=== PATIENT | male | born 1960 | race Caucasian/White ===

== ENCOUNTER 2016-12-11 14:42 | Emergency (ER) ==
[2016-12-11 14:52] VITALS: BP 137/93; TEMP 99.8; BMI 31.1
[2016-12-11 15:33] LABS: BASOPHILS # (AUTO) 0.1 K/uL (0-0.2); BASOPHILS % (AUTO) 0.6 % (0.0-3.0); EOSINOPHILS # (AUTO) 0.5 K/ul (0.0-0.7); EOSINOPHILS % (AUTO) 5.9 % (0.0-7.0); HEMATOCRIT 41.7 % (42.0-52.0); HEMOGLOBIN 14.5 g/dl (14.0-18.0); IMMATURE GRANULOCYTE % (AUTO) 0.2 % (0.0-5.0); LYMPHOCYTES # (AUTO) 1.8 K/uL (0.60-3.4); LYMPHOCYTES % (AUTO) 21.6 (10.0-50.0); MEAN CORPUSCULAR HEMOGLOBIN 29.8 pg (27.0-31.0); MEAN CORPUSCULAR HGB CONC 34.8 (31.8-35.4); MEAN CORPUSCULAR VOLUME 85.6 fl (80.0-94.0); MONOCYTES # (AUTO) 0.6 K/uL (0.4-2.0); MONOCYTES % (AUTO) 7.5 (0-10); NEUTROPHILS # (AUTO) 5.2 K/ul (2.0-6.9); NEUTROPHILS % (AUTO) 64.2; PLATELET COUNT 286 10^3/uL (140-440); RED BLOOD COUNT 4.87 10^6/ul (4.70-6.10); WHITE BLOOD COUNT 8.14 K/ul (4.2-10.2)
[2016-12-11 16:07] LABS: ALANINE AMINOTRANSFERASE 32 U/L (12-78); ALBUMIN 3.6 g/dL (3.4-5.0); ALKALINE PHOSPHATASE 91 U/L (50-136); ANION GAP 12.1; ASPARTATE AMINO TRANSFERASE 30 U/L (15-37); BILIRUBIN,TOTAL 0.57 mg/dL (0.00-1.20); BLOOD UREA NITROGEN 31 mg/dL (7-18); BUN/CREATININE RATIO 23.84; CALCIUM 9.1 mg/dL (8.2-10.2); CARBON DIOXIDE 26 mmol/L (21-32); CHLORIDE 105 mmol/L (98-107); CREATINE KINASE 238 U/L; GLUCOSE 138 mg/dL (70-100); POTASSIUM 4.1 mmol/L (3.5-5.1); SODIUM 139 mmol/L (136-145); TOTAL PROTEIN 7.2 g/dL (6.4-8.2)
--- NOTE | 2016-12-11 16:07 | DI ---
EXAM: Chest two views HISTORY: Chest pain FINDINGS: Normal cardiac and mediastinal contours. Normal pulmonary vasculature. Lungs are clear. No significant abnormality of the bony thorax. IMPRESSION: Chest radiograph within normal limits.
[2016-12-11 16:09] LABS: CREATINE KINASE MB 3.3 ng/ml (0.0-3.6)
--- NOTE | 2016-12-11 16:15 | CT ---
EXAM: CT of the abdomen pelvis without contrast History: Right upper quadrant abdominal pain. Comparison: Abdominal ultrasound 01/18/2011, CT abdomen 05/02/2008 Technique: Multiplanar CT images through the abdomen were obtained without the administration of IV contrast Findings: Subsegmental atelectasis seen at the lung bases. No acute osseous abnormalities. Gallbladder is contracted. No renal stones and no hydronephrosis. The appendix is normal. Small h iatal hernia. No peripancreatic inflammation. Adrenal glands are unremarkable. No focal liver les ions identified within limitations of this noncontrast study. No splenic lesions. No bowel obstruct ion. No free air. No bladder wall thickening. Prostate is not enlarged. No perirectal inflammati on. Scattered colonic stool. Impression: No acute intra-abdominal or pelvic process. Small hiatal hernia.
--- NOTE | 2016-12-11 17:28 | ED.PDOC ---
General ED Provider: Dr. ALONSO TAPIA Chief Complaint: Abdominal Pain Stated Complaint: RUQ ABDOMINAL PAIN Time Seen by Physician: 14:46 (HISTORY OF HEP C ) Mode of Arrival: Walk-In Information Source: Patient Exam Limitations: No limitations Nursing and Triage Documentation Reviewed and Agree: Yes GI Complaint Exam - Abdominal Pain Complaint/Exam Onset: Gradual Duration: 1 MONTH Symptoms Are: Resolved Timing: Intermittent Initial Severity: Moderate Current Severity: Moderate Location of Pain: RUQ Character: Reports: Aching Aggravating: Reports: Movement, Food Alleviating: Reports: Rest, Spontaneous resolution Associated Signs and Symptoms: Reports: Cough. Denies: Diaphoresis, Fever, Chest pain, Dizziness, Back pain, Constipation, Blood in stool, Dysuria, Urinary frequency, Decreased urine output, Decreased appetite, Discharge, Nausea , Vomiting, Diarrhea, Decreased activity Related History: Reports: Similar episode AAA Risk Factors: Reports: None Cardiac Risk Factors: Reports: None Testicular Torsion Risk Factors: Reports: None Surgical Obstruction Risk Factors: Reports: None Related Surgical History: Reports: None Abdominal Findings: Present: None Differential Diagnoses: ACS, Appendicitis, Bowel Obstruction, Constipation, Diverticulitis, Hepatitis, Pancreatitis, Renal Colic, Ureteral Stone Quality Indicators for AMI: EKG in 10min. Quality Indicators for Cardiac Chest Pain: EKG in 10min. Review of Systems - Review Of Systems Constitutional: Reports: No symptoms Eyes: Reports: No symptoms Ears, Nose, Mouth, Throat: Reports: No symptoms Respiratory: Reports: No symptoms Cardiac: Reports: No symptoms GI: Reports: Abdominal pain : Reports: No symptoms Musculoskeletal: Reports: No symptoms Skin: Reports: No symptoms Neurological: Reports: No symptoms Endocrine: Reports: No symptoms Hematologic/Lymphatic: Reports: No symptoms All Other Systems: Reviewed and Negative Past Medical History - Past Medical History Previously Healthy: Yes Endocrine: Reports: None Cardiovascular: Reports: None Respiratory: Reports: None Hematological: Reports: None Gastrointestinal: Reports: Other (HEP C) Genitourinary: Reports: None Neuro/Psych: Reports: None Musculoskeletal: Reports: Back Pain Cancer: Reports: None - Surgical History General Surgical History: Reports: None - Family History Family History: Reports: None - Social History Smoking Status: Former smoker Hx Substance Use: No Alcohol Screening: Occasionally Physical Exam - Physical Exam Appearance: Well-appearing, No pain distress, Well-nourished Eyes: NIMA, EOMI, Conjunctiva clear ENT: Ears normal, Nose normal, Oropharynx normal Respiratory: Airway patent, Breath sounds clear, Breath sounds equal, Respirations nonlabored Cardiovascular: RRR, Pulses normal, No rub, No murmur GI/: Soft, Nontender, No masses, Bowel sounds normal, No Organomegaly Musculoskeletal: Normal strength, ROM intact, No edema, No calf tenderness Skin: Warm, Dry, Normal color Neurological: Sensation intact, Motor intact, Reflexes intact, Cranial nerves intact, Alert, Oriented Psychiatric: Affect appropriate, Mood appropriate Interpretation - Radiology Interpretation Radiology Interpretation By: Radiologist Radiology Results: No acute changes Re-Evaluation - Re-Evaluation Time of Re-Evaluation: 16:00 Status: Improved Vital Signs Stable: Yes Pain Level: 0 Appearance: NAD Lungs: Clear Skin: Warm and Dry Neuro: Alert and Oriented X3 CV: RRR - Re-Evaluation Time of Re-Evaluation: 17:29 Status: Improved Vital Signs Stable: Yes Pain Level: 0 Appearance: NAD Skin: Warm and Dry Neuro: Alert and Oriented X3 CV: RRR Critical Care Note - Critical Care Note Total Time (mins): 0 Course - Course Hematology/Chemistry: 12/11/16 15:25 12/11/16 15:25 Orders, Labs, Meds: Lab Review 12/11/16 15:25 WBC 8.14 RBC 4.87 Hgb 14.5 Hct 41.7 L MCV 85.6 MCH 29.8 MCHC 34.8 RDW Coeff of Piero 13.2 Plt Count 286 Immature Gran % (Auto) 0.2 Neut % (Auto) 64.2 Lymph % (Auto) 21.6 Taney % (Auto) 7.5 Eos % (Auto) 5.9 Baso % (Auto) 0.6 Immature Gran # (Auto) 0.0 Neut # 5.2 Lymph # 1.8 Taney # 0.6 Eos # 0.5 Baso # 0.1 D-Dimer (Manual) 279.68 Sodium 139 Potassium 4.1 Chloride 105 Carbon Dioxide 26 Anion Gap 12.1 BUN 31 H Creatinine 1.30 H Estimated GFR (MDRD) 57.00 BUN/Creatinine Ratio 23.84 Glucose 138 H Calcium 9.1 Total Bilirubin 0.57 AST 30 ALT 32 Alkaline Phosphatase 91 Total Creatine Kinase 238 CK-MB (CK-2) 3.3 CK-MB (CK-2) % 1.97240 Troponin I < 0.0100 Total Protein 7.2 Albumin 3.6 Globulin 3.6 Albumin/Globulin Ratio 1.00 Orders Category Date Time Status CBC W/ AUTO DIFF Stat LAB 12/11/16 15:25 Completed COMPREHENSIVE METABOLIC PANEL Stat LAB 12/11/16 15:25 Completed CREATINE KINASE Stat LAB 12/11/16 15:25 Completed D-DIMER Stat LAB 12/11/16 15:25 Completed TROPONIN I Stat LAB 12/11/16 15:25 Completed CHEST, 2 VIEWS PA & LAT Stat RADS 12/11/16 15:[address] ABDOMEN/PELVIS WO CONTRAST Stat RADS 12/11/16 15:20 Completed Vital Signs: Temp Pulse Resp BP Pulse Ox 12/11/16 14:46 99.8 F H 87 16 137/93 H 94 L Departure - Departure Time of Disposition: 17:29 Disposition: HOME SELF-CARE Discharge Problem: Abdominal pain Instructions: Acute Abdominal Pain (ED) Condition: Good Pt referred to PMD for follow-up: No Additional Instructions: Please call your Family Physician as soon as possible to schedule a follow-up appointment. Allergies/Adverse Reactions: Allergies No Known Allergies Allergy (Unverified 12/11/16 14:44) Home Medications: Ambulatory Orders Amitriptyline HCl [Elavil] 50 mg PO BEDTIME 04/09/13 Hydrocodone Bit/Acetaminophen [Lortab 10-500] 10 mg PO QID PRN 04/09/13 Pregabalin [Lyrica] 200 mg PO TID 04/09/13 Oxycodone HCl [Oxycodone] 5 mg PO Q6H PRN 12/11/16 Disposition Discussed With: Patient, Family
== END 2016-12-11 17:42 | disposition home or self-care (01) ==
LOC: ED 14:42
DX: R10.11 Right upper quadrant pain (principal); R05 Cough; Z79.899 Other long term (current) drug therapy
CPT/HCPCS: 36415; 80053; 82550; 82553; 84484; 85025; 85379; 99283

== ENCOUNTER 2017-04-17 15:43 | Outpatient (CLI) | payer OTHER ==
[2017-04-17 15:59] LABS: BASOPHILS # (AUTO) 0.1 K/uL (0-0.2); EOSINOPHILS # (AUTO) 0.5 K/ul (0.0-0.7); EOSINOPHILS % (AUTO) 6.9 % (0.0-7.0); HEMATOCRIT 43.5 % (42.0-52.0); HEMOGLOBIN 14.9 g/dl (14.0-18.0); IMMATURE GRANULOCYTE % (AUTO) 0.1 % (0.0-5.0); LYMPHOCYTES % (AUTO) 29.4 (10.0-50.0); MEAN CORPUSCULAR HEMOGLOBIN 29.7 pg (27.0-31.0); MEAN CORPUSCULAR HGB CONC 34.3 (31.8-35.4); MEAN CORPUSCULAR VOLUME 86.8 fl (80.0-94.0); MONOCYTES # (AUTO) 0.5 K/uL (0.4-2.0); MONOCYTES % (AUTO) 7.7 (0-10); NEUTROPHILS # (AUTO) 3.7 K/ul (2.0-6.9); NEUTROPHILS % (AUTO) 54.9; PLATELET COUNT 332 10^3/uL (140-440); RED BLOOD COUNT 5.01 10^6/ul (4.70-6.10); WHITE BLOOD COUNT 6.78 K/ul (4.2-10.2)
[2017-04-17 16:13] LABS: ALBUMIN 3.8 g/dL (3.4-5.0); ALBUMIN/GLOBULIN RATIO 1.06; ANION GAP 11.2; BILIRUBIN,TOTAL 0.55 mg/dL (0.00-1.20); BUN/CREATININE RATIO 19.09; CALCIUM 9.4 mg/dL (8.2-10.2); CHOL/HDL RATIO 3.1 (4.5-6.4); CREATININE 1.1 mg/dL (0.60-1.10); POTASSIUM 4.2 mmol/L (3.5-5.1); TOTAL PROTEIN 7.4 g/dL (6.4-8.2)
--- NOTE | 2017-04-17 16:41 | DI ---
EXAM: The left wrist, three views, 04/17/2017 HISTORY: Left wrist pain COMPARISON: None. FINDINGS / IMPRESSION: Chronic osteoarthritic degenerative change. This is most severe at the basil ar joint. There is joint space narrowing with articular sclerosis and subchondral cyst formation. Pro minent osteophyte formation and degenerative appearing bony fragment along the distal aspect of the t rapezium. The osseous structures appear intact. There is no evidence of fracture or or subluxation. No gross soft tissue abnormality.
== END 2017-04-17 15:44 | disposition home or self-care (01) ==
LOC: RAD 15:43
PROVIDERS: ATTEND Emergency Medicine
DX: M25.532 Pain in left wrist (principal); E66.9 Obesity, unspecified; M47.26 Other spondylosis with radiculopathy, lumbar region
CPT/HCPCS: 36415; 80053; 80061; 85025

== ENCOUNTER 2017-04-24 13:11 | Outpatient (CLI) ==
--- NOTE | 2017-04-24 13:51 | DI ---
EXAM: Three views of the bilateral sacroiliac joints. History: Sacral pain. Findings: No acute fracture or dislocation. Bilateral sacroiliac joints are intact with no erosions and no significant sclerosis. Degenerative facet hypertrophy at L5-S1. Impression: 1. Intact bilateral sacroiliac joints. 2. Degenerative facet hypertrophy at L5-S1.
--- NOTE | 2017-04-24 13:51 | DI ---
EXAM: Two views of the right hip. History: Right hip pain. Findings: No acute fracture or dislocation. No abnormal calcifications or radiopaque foreign bodies . Joint spaces are preserved. Impression: Unremarkable exam
== END 2017-04-24 13:12 | disposition home or self-care (01) ==
LOC: RAD 13:11
PROVIDERS: ATTEND Physician Assistant
DX: M53.3 Sacrococcygeal disorders, not elsewhere classified (principal)

== ENCOUNTER 2017-04-26 09:53 | Outpatient (CLI) ==
--- NOTE | 2017-04-26 16:40 | MRI ---
EXAM: MRI lumbar spine without IV contrast. DATE: 26 April 2017. HISTORY: Lumbar back pain. TECHNIQUE: Sagittal and axial T1W and T2W sequences of the lumbar spine along with sagittal IR and c oronal T2W sequences were obtained using 1.2 Eri magnet. No IV contrast. COMPARISON: LS spine series 04/19/2013. MRI T-spine [address] abdomen/pelvis 12/11/2016. FINDINGS: There are five wuw-jps-fywmanr lumbar vertebra. Minimal anterior subluxations at L4 relat shea to L3 and L5 relative to S1 are noted. No other subluxation, acute fracture, osseous malignancy, or pars interarticularis defect is identified. Lumbar vertebra are normal in height. Bone marrow s ignal is normal. Intervertebral discs are normal in height and signal. No sacral fracture or stress reaction is apparent. SI joints are unremarkable. Conus medullaris terminates at T12-L1. Visible spinal cord is normal. No retroperitoneal lymphadenopathy, paraspinal mass, or aortic aneurysm is detected. Paraspinal musc ulature is symmetric bilaterally. Visible portions of the liver, spleen, adrenal glands, and kidneys are normal. Segmental analysis: T12-L1: Normal. L1-2: Normal. L2-3: Normal. L3-4: Minor anterior subluxation of L4, small pseudodisc bulge, mild facet arthropathy, and mild lig amentum flavum hypertrophy cause mild central canal stenosis and mild bilateral foraminal stenoses. Left L3 nerve root contacts the disc bulge near the lateral margin of the foramen. L4-5: Minor anterior subluxation of L5, small concentric disc bulge, mild/moderate facet arthropathy , and moderate ligamentum flavum hypertrophy cause moderate central canal stenosis, moderate/marked r ight foraminal stenosis, and slight left foraminal narrowing. Right L4 nerve root contacts the disc bulge/facet disease near the foramen. L5-S1: Small posterior to foraminal disc bulge, mild right facet arthropathy, and mild ligamentum fl avum hypertrophy cause triangulation canal and mild right foraminal stenosis. Right L5 nerve root co ntacts the disc bulge near the lateral margin of the foramen. IMPRESSIONS: 1. Lumbar spine mild facet arthropathy, and multilevel mild DDD. 2. Multilevel central canal stenoses (L3-4: Mild. L4-5: Moderate. L5-S1: Minor). 3. Multilevel foraminal stenoses. Left L3, right L4, and right L5 nerve roots contact disc bulges n ear the foramen, and may be sources for pain/radiculopathy.
== END 2017-04-26 09:54 | disposition home or self-care (01) ==
LOC: RAD 09:53
PROVIDERS: ATTEND Physician Assistant
DX: M54.5 Low back pain (principal)

== ENCOUNTER 2017-07-04 15:15 | Outpatient (CLI) ==
--- NOTE | 2017-07-04 16:03 | DI ---
Exam: Seven x-rays of the lumbar spine. Comparison: MRI performed on 04/26/2017. Reason for exam: Low or inflammatory spondylolisthesis. FINDINGS: No acute fracture. The vertebral body heights are relatively well maintained. There is a grade 1 retrolisthesis of L3 on L4 measuring approximately 3 mm. No significant motion abnormality is seen with the flexion or extension radiographs. There is multilevel degenerative disease with fac et hypertrophy. Impression: 1. Degenerative disease in the lumbosacral spine without vertebral body height loss. 2. Grade 1 retrolithesis without significant motion abnormality on flexion or extension radiographs.
== END 2017-07-04 15:16 | disposition home or self-care (01) ==
LOC: RAD 15:15
PROVIDERS: ATTEND Neurological Surgery
DX: M46.87 Other specified inflammatory spondylopathies, lumbosacral region (principal); M47.816 Spondylosis without myelopathy or radiculopathy, lumbar region; M51.26 Other intervertebral disc displacement, lumbar region

== ENCOUNTER 2017-10-05 15:27 | Outpatient (CLI) | payer OTHER ==
--- NOTE | 2017-10-05 16:06 | DI ---
EXAM: Radiographs, left knee HISTORY: Left knee pain. COMPARISON: None available. TECHNIQUE: Three views. FINDINGS: Bone mineralization is normal. There is no fracture or dislocation. Moderate medial comp artment joint space narrowing noted with subchondral sclerosis and marginal osteophyte formation. Sm all marginal osteophytes present off the posterior patella. No erosive changes are seen. No focal s oft tissue abnormality is seen. IMPRESSION: Osteoarthritis, moderate in the medial compartment.
== END 2017-10-05 15:28 | disposition home or self-care (01) ==
LOC: RAD 15:27
PROVIDERS: ATTEND Nurse Practitioner Family
DX: M25.562 Pain in left knee (principal)

== ENCOUNTER 2017-10-29 11:36 | Emergency (ER) ==
[2017-10-29 11:41] VITALS: BP 158/89; TEMP 97.8; BMI 33.3
[2017-10-29] MEDS ORDERED: ROCEPHIN IM STA (12:01)
[2017-10-29] MEDS ORDERED: LIDOCAINE HCL 1% SDV IM STA (12:01)
--- NOTE | 2017-10-29 12:01 | ED.PDOC ---
General ED Provider: Dr. JAQUELIN GOMES MD Chief Complaint: Tooth Problem Stated Complaint: toothache Time Seen by Physician: 12:00 Mode of Arrival: Walk-In Information Source: Patient [facility] Nursing and Triage Documentation Reviewed and Agree: Yes Reviewed sepsis parameters & appropriate labs ordered?: Yes System Inflammatory Response Syndrome: Not Applicable Sepsis Protocol: For patient's 13 years and over: Temp is 96.8 and below OR 101 and greater Pulse >90 BPM Resp >20/minute Acutely Altered Mental Status Are patient's symptoms suggestive of a new infection, such as: -Pneumonia -Skin, Soft Tissue -Endocarditis -UTI -Bone, Joint Infection -Implantable Device -Acute Abdominal Infection -Wound Infection -Meningitis -Blood Stream Catheter Infection -Unknown System Inflammatory Response Syndrome: Not Applicable EENT Complaint Exam - Dental/Oral Complaint/Exam Onset/Duration: just had 8 teeth pulled last week Symptoms Are: Still present Timing: Constant Initial Severity: Mild Current Severity: Moderate Character: Reports: Aching Aggravating: Reports: None Alleviating: Reports: None Cardiac Risk Factors: Reports: None Tooth Findings: Present: Normal findings Cervical Lymphadenopathy Present: No Facial Swelling Present: No Bleeding Present: No Septal Hematoma: No Foreign Body Present: No Dysphagia Present: No Drooling Present: No Asymmetrical Tonsillar Swelling Present: No Uvula Midline: Yes Iliana-tonsillar Fluctuence: No Review of Systems - Review Of Systems Constitutional: Reports: No symptoms Eyes: Reports: No symptoms Ears, Nose, Mouth, Throat: Reports: Mouth pain Respiratory: Reports: No symptoms Cardiac: Reports: No symptoms GI: Reports: No symptoms : Reports: No symptoms Musculoskeletal: Reports: No symptoms Skin: Reports: No symptoms Neurological: Reports: No symptoms Endocrine: Reports: No symptoms Hematologic/Lymphatic: Reports: No symptoms All Other Systems: Reviewed and Negative Past Medical History - Past Medical History Previously Healthy: Yes Endocrine: Reports: None Cardiovascular: Reports: None Respiratory: Reports: None Hematological: Reports: None Gastrointestinal: Reports: Other (HEP C) Genitourinary: Reports: None Neuro/Psych: Reports: None Musculoskeletal: Reports: Back Pain Cancer: Reports: None - Surgical History General Surgical History: Reports: None - Family History Family History: Reports: None - Social History Smoking Status: Former smoker Hx Substance Use: No Alcohol Screening: Occasionally Physical Exam - Physical Exam Appearance: Obese Ill-appearing: None Pain Distress: None Eyes: NIMA, EOMI, Conjunctiva clear ENT: Ears normal, Nose normal, Oropharynx normal Respiratory: Airway patent, Breath sounds clear, Breath sounds equal, Respirations nonlabored Cardiovascular: RRR, Pulses normal, No rub, No murmur GI/: Soft, Nontender, No masses, Bowel sounds normal, No Organomegaly Musculoskeletal: Normal strength, ROM intact, No edema, No calf tenderness Skin: Warm, Dry, Normal color Neurological: Sensation intact, Motor intact, Reflexes intact, Cranial nerves intact, Alert, Oriented Psychiatric: Affect appropriate, Mood appropriate Critical Care Note - Critical Care Note Total Time (mins): 0 Course - Course Vital Signs: Temp Pulse Resp BP Pulse Ox 10/29/17 11:37 97.8 F 80 20 158/89 H 97 Departure - Departure Time of Disposition: 12:30 (f/u dentist) Disposition: HOME SELF-CARE Discharge Problem: Tooth ache Condition: Good Pt referred to PMD for follow-up: Yes IPMP verified?: No Allergies/Adverse Reactions: Allergies No Known Allergies Allergy (Verified 10/29/17 11:41) Home Medications: Ambulatory Orders Amitriptyline HCl [Elavil] 50 mg PO BEDTIME 04/09/13 Hydrocodone Bit/Acetaminophen [Lortab 10-500] 10 mg PO QID PRN 04/09/13 Pregabalin [Lyrica] 200 mg PO TID 04/09/13 Oxycodone HCl [Oxycodone] 5 mg PO Q6H PRN 12/11/16
[2017-10-29] MEDS ORDERED: TORADOL IM STA (12:02)
== END 2017-10-29 12:46 | disposition home or self-care (01) ==
LOC: ED 11:36
DX: K08.89 Other specified disorders of teeth and supporting structures (principal)
CPT/HCPCS: 96372; 99283

== ENCOUNTER 2018-09-25 12:17 | Outpatient (CLI) ==
--- NOTE | 2018-09-25 14:49 | DI ---
EXAM: Right knee four-view HISTORY: Right knee pain COMPARISON: None FINDINGS: No fracture or dislocation. Small medial and retropatellar osteophytes. Mild narrowing m edial compartment. Elongation of the inferior aspect of the patella may be due to old trauma or soft tissue injury. Small joint effusion suggested. IMPERSSION: 1. Mild osteoarthritis. 2. Small joint effusion.
--- NOTE | 2018-09-25 14:59 | DI ---
EXAM: Four views of the left knee HISTORY: Left knee pain. COMPARISON: The right knee x-rays same day and left knee x-ray 10/05/2017 FINDINGS: Medial and lateral compartments demonstrate mild to moderate osteophyte formation and minim al medial compartmental narrowing. The patella is normal in position with small osteophyte formation . There is a small knee effusion. Soft tissues are otherwise unremarkable. There has been minimal change from prior exam. IMPRESSION: Minimal change in the tricompartmental degenerative disease of the left knee with a small effusion.
== END 2018-09-25 12:18 | disposition home or self-care (01) ==
LOC: RAD 12:17
PROVIDERS: ATTEND Pain Medicine Interventional Pain Medicine
DX: M25.561 Pain in right knee (principal); M25.562 Pain in left knee

== ENCOUNTER 2018-12-16 09:56 | Outpatient (CLI) ==
--- NOTE | 2018-12-16 15:46 | MRI ---
MRI of the lumbar spine HISTORY: Low back pain. Right SI joint pain. COMPARISON: 04/26/2017. PROCEDURE: Multiplanar, multisequence MRI protocol including sagittal T1-weighted, sagittal T2-weigh jaany, sagittal inversion recovery, coronal T2-weighted, axial T1-weighted and axial T2-weighted sequen antionette. FINDINGS: There are five non-rib bearing lumbar vertebrae. Vertebral alignment demonstrates minimal anterior subluxation of L4 relative to L3 and L5 relative to S1 as described in the previous report.. Vertebral body height is well maintained. Marrow signal is within normal limits for age. The inte rvertebral discs appear normal in height and signal. The conus medullaris appears normal in position and configuration and signal. The caliber of the spinal canal is intrinsically within normal limits . The prevertebral and paraspinous soft tissues are stable in appearance. Segmental analysis: T12-L1: There is no significant disc bulge at this level. The spinal canal is not significantly narr owed. The subarticular spaces and lateral recesses are not significantly narrowed. The neural garcia isha are not stenosed. The conus crosses this level. L1-L2: There is no significant disc bulge at this level. The spinal canal is not significantly narro wed. The subarticular spaces and lateral recesses are not significantly narrowed. The neural forami na are not stenosed. The conus terminates about this level. L2-L3: There is no significant disc bulge at this level. The spinal canal is not significantly narro wed. The subarticular spaces and lateral recesses are not significantly narrowed. The neural forami na are not stenosed. There are small facet effusions. L3-L4: There is a broad-based pseudodisc bulge impressing the ventral thecal sac at this level. The AP diameter in the midline is reduced to about 8.5 mm by disc, facet hypertrophy, thickening ligament a flava and dorsal epidural lipomatosis. The subarticular spaces and lateral recesses are not signif icantly narrowed. There is mild bilateral foraminal stenosis due to facet arthropathy and disc intru angel. L4-L5: There is a modest broad-based pseudodisc bulge at this level. The AP diameter of the thecal s ac in the midline is reduced to about 8.5 mm. There is modest narrowing of the subarticular spaces. There is mild left and moderate to severe right foraminal stenosis due to facet arthropathy and disc intrusion. L5-S1: There is a modest broad based disc bulge at this level. The spinal canal is not significantly narrowed. The subarticular spaces and lateral recesses are not significantly narrowed. There is mi ld to moderate right foraminal stenosis due to facet arthropathy and disc intrusion. IMPRESSION: 1. The lumbar vertebrae and intervertebral discs are stable in appearance when compared to the patie nt's prior examination. 2. There is previously described multilevel central canal stenosis including mild stenosis at L3-4 a nd L4-5. 3. There is multilevel foraminal stenosis including mild bilateral stenosis at L3-4, mild left and m oderate to severe right stenosis at L4-5 and mild to moderate right stenosis at L5-S1, details provid ed in the report at the individual levels. 4. The SI joints are not completely included in the protocol for the current examination. If there is strong clinical reason to suspect SI joint pathology, a separate MRI examination is suggested.
== END 2018-12-16 09:57 | disposition home or self-care (01) ==
LOC: RAD 09:56
PROVIDERS: ATTEND Pain Medicine Interventional Pain Medicine
DX: M46.1 Sacroiliitis, not elsewhere classified (principal); M54.5 Low back pain

== ENCOUNTER 2019-02-28 14:00 | Outpatient (RCR) | payer OTHER ==
--- NOTE | 2019-02-20 16:25 | RS.OPPTEV2 ---
Date of Note: 02/20/19 Visit #: 1 Number of visits approved by Insurance: [id number] approved thru work comp Date of Evaluation: 02/20/19 Payer Source: [employer] Surgery Performed?: Yes (L TKR 12/30/18) Treatment Diagnosis: pain L knee, aftercare following total knee joint, joint stiffness History of Condition/Mechanism of Injury:: pt underwent L TKR on 12/30/18. pt has been waiting since that date to get approval through work comp to begin PT. Prior Level of Function.....Patient was independent with: ADL's, Self Care, Ambulation/Mobility, Community Integration/Access Level of Function: pt is disabled. Functional Limitations: Sleep, Standing, Bending, Squatting, Ambulation, Community Access/Integration Current Subjective/complaints:: pt voices frustration regarding process to get PT started. pt had total knee replacement on 12/30/18 and has not had any therapy until today. pt states he has wear and tear injuries to his knees from years ago working at [employer]. Treatment Side (optional): Left *Precautions: n/a Medical History Medical History Comments:: chronic back pain Surgical History: Knee Replacement (L TKR, ) Surgical History Comments:: wrist sx Smoking Status: Former smoker Hx Home Medications: norco, oxycodone, lyrica, elavil Patient's Goals: decrease L knee pain and improve ROM Pain Assessment - Pain Description Pain Location: L knee Pain Description: Aching Current Pain Intensity: 8 Worst Pain Intensity: 10+ Functional Outcome Measure LE Functional Scale: 30 - G Codes & Severity Modifier G Codes & Modifier: n/a Source of G Code score: n/a Observation - Observation Inspection: L LE hamstring tightness Posture: Forward Head, Rounded Shoulders, Increased Thoracic Kyphosis Handedness: Right Girth Measurement Lower: LLE 42cm. RLE 39.5cm Gait - Gait Pattern General Gait Pattern Observation: Antalgic Gait, Decrease Stride Lngth (L) Gait Comments: pt amb with decreased heel strike/toe off gait pattern. pt also with increased lat sway. pt is amb with straight cane General Range of Motion: BUE WFL's. RLE WFL's. L LE hip and ankle WFL's Muscle Strength: BUE 5/5. RLE 5/5. LLE hip flex 4/5, ankle DF/PF 4+/5 Knee ROM: Right WFL's Knee Muscle Strength: Right WFL's - Left Knee ROM Left Knee Extension: -11 Left Knee Flexion: 95 (AAROM) Knee ROM Limitations: Soft Tissue Tightness, Muscle Weakness, Pain - Left Knee Strength Left Knee Extension: 3- Fair- Left Knee Flexion: 3- Fair- Palpation Palpation Findings: Tenderness Comments:: tenderness noted in the L knee Sensation - Sensation Right Upper Extremity: Intact/Normal Left Upper Extremity: Intact/Normal Right Lower Extremity: Intact/Normal Left Lower Extremity: Intact/Normal Balance - Sitting Balance Static Sitting Balance: Normal Dynamic Sitting Balance: Normal - Standing Balance Static Standing Balance: Good Dynamic Standing Balance: Good - Heat/Cryotherapy Treatment: Cryotherapy Comments:: L knee Interventions - Exercise/Activities/Manual Therapy Exercises/Activities: pt performed QS, hamstring stretch, HS, SLR, LAQ. pt also rode bike x 1 min, Leg press 60# 2 sets of 10 reps. pt also instructed on knee ext stretch with heel on towel. Manual Therapy: n/a HOME EXERCISE PROGRAM: pt given written HEP including: hamstring stretch, knee ext prop, QS, HS, prone ham set, LAQ - Charges Timed Code Treatment Minutes: 42 Total Treatment Time: 54 Procedures billed for this date of service:: tayloral low, ex, CP EVALUATION COMPLEXITY LEVEL EVALUATION COMPLEXITY LEVEL: HISTORY: Low, EXAM OF BODY SYSTEMS: Low, CLINICAL PRESENTATION: Low, CLINICAL DECISION MAKING: Low Assessment Assessment: pt presents with decreased L knee ROM, strength, balance, gait ability as well as pain in L knee. Feel pt would benefit from skilled PT for therex for LE strengthening, ROM and modalities to decrease pain and improve ROM. Patient Education: Home Exercise Program, Education of Plan of Care Rehab Potential: Good Short Term Goals Goal #1: pt independent with intial HEP Goal to be met by: 03/07/19 Goal #2: ROM L knee flex 98 ext -8 Goal to be met by: 03/07/19 Goal #3: Decrease pain L knee < 8/10 Goal to be met by: 03/07/19 Goal #4: Improve strength LLE 4- to 4/5 Goal to be met by: 03/07/19 Detention Goals Goal #1: Improve ROM L knee flex 110 ext 0 Goal to be met by: 03/28/19 Goal #2: pt amb with/without AD with improved heel strike/toe off Goal to be met by: 03/28/19 Goal #3: decrease pain < 5/10 Goal to be met by: 03/28/19 Goal #4: pt report able to perform normal daily activities with less pain Goal to be met by: 03/28/19 Plan - Treatment to be Provided Procedures: Therapeutic Exercises, Therapeutic Activity, Manual Therapy, Massage , Patient Education Modalities: Electrical Stimulation, Ultrasound/Phonophoresis, Cryotherapy, Hot Packs - Treatment Plan Frequency: 2-3x a week Duration: 6 weeks Dates of Surg Rn Goals: 03/28/19 Expiration date of current Insurance Approval:: n/a - Treatment Code (1) Left knee pain Code(s): M25.562 - PAIN IN LEFT KNEE Qualifiers: Chronicity: unspecified Qualified Code(s): M25.562 - Pain in left knee (2) Aftercare following left knee joint replacement surgery Code(s): Z47.1 - AFTERCARE FOLLOWING JOINT REPLACEMENT SURGERY; Z96.652 - PRESENCE OF LEFT ARTIFICIAL KNEE JOINT (3) Joint stiffness of knee Qualifiers: Laterality: left Qualified Code(s): M25.662 - Stiffness of left knee, not elsewhere classified (4) Gait difficulty Code(s): R26.9 - UNSPECIFIED ABNORMALITIES OF GAIT AND MOBILITY
--- NOTE | 2019-02-21 15:22 | RS.OPPTDN ---
Subjective Date of Note: 02/21/19 Visit #: 2 Number of visits approved by Insurance: na Date of Evaluation: 02/20/19 Payer Source: Workman's Comp Treatment Diagnosis: pain L knee, aftercare following total knee joint, joint stiffness Current Subjective/complaints:: Patient reports pain and tightness that limits the ROM of his left knee. States he is working on HEP as instructed. *Precautions: n/a Pain Assessment - Pain Description Pain Location: left knee Pain Description: Tightness, Sharp, Aching Current Pain Intensity: mod Worst Pain Intensity: high - Heat/Cryotherapy Treatment: Cryotherapy (Ended with CP to the left knee [id number]. Patient in supine with left LE elevated. ) Interventions - Exercise/Activities/Manual Therapy Exercises/Activities: Stationary bike 3mins. Passive left knee flexion and extension. QS, hamstring stretch, HS, and SLR. SAQ with 3# and left hip flexion with 3#. Bilateral SAQ with ball between feet. Green theraband for resisted left ankle df and ham curl. Isometric hip add and ankle inversion, both with pillow. In sitting, LAQ, passive flexion, AP. Heel slides. Verbal cues for heel strike, and to actively extend knee, with ambulation. Total minutes of Exercise: 39mins/42mins Manual Therapy: n/a HOME EXERCISE PROGRAM: pt given written HEP including: hamstring stretch, knee ext prop, QS, HS, prone ham set, LAQ. Sitting heel slides. - Objective Findings Observations,measurements,etc.: Patient demos passive left knee flexion 101 degrees. (passive right flexion 136 degrees) - Charges Timed Code Treatment Minutes: 39mins Total Treatment Time: 57mins Procedures billed for this date of service:: EX3, CP Assessment: Patient demfabien increase in left knee ROM today. He appears to be working on HEP. Patient Education: Home Exercise Program, Activity Modification Comments: Instructed to perform heel slides for knee flexion/extension while sitting in straight-backed chair. Patient demonstrates compliance with HEP?: Yes Short Term Goals Goal #1: pt independent with intial HEP Goal to be met by: 03/07/19 Progress towards Goal:: Progressing Goal #2: ROM L knee flex 98 ext -8 Goal to be met by: 03/07/19 Progress towards Goal:: Progressing Goal #3: Decrease pain L knee < 8/10 Goal to be met by: 03/07/19 Goal #4: Improve strength LLE 4- to 4/5 Goal to be met by: 03/07/19 Jail Goals Goal #1: Improve ROM L knee flex 110 ext 0 Goal to be met by: 03/28/19 Goal #2: pt amb with/without AD with improved heel strike/toe off Goal to be met by: 03/28/19 Progress towards goal: Progressing Goal #3: decrease pain < 5/10 Goal to be met by: 03/28/19 Goal #4: pt report able to perform normal daily activities with less pain Goal to be met by: 03/28/19 Plan Dates of Tail Ripper Goals: 03/28/19 Expiration date of current Insurance Approval:: 03/28/19 PLAN: Progress with ROM and strengthening of the left LE to increase functional activity level.
--- NOTE | 2019-02-26 15:31 | RS.OPPTDN ---
Subjective Date of Note: 02/26/19 Visit #: 3 Number of visits approved by Insurance: [id number] Date of Evaluation: 02/20/19 Payer Source: Workman's Comp Treatment Diagnosis: pain L knee, aftercare following total knee joint, joint stiffness Current Subjective/complaints:: Reports stiffness left knee and limited extension when walking. *Precautions: n/a Pain Assessment - Pain Description Pain Location: left knee Pain Description: Tightness, Sharp, Aching Current Pain Intensity: 7/10 - Heat/Cryotherapy Treatment: Cryotherapy (5mins to left knee with passive ext stretch, then 14mins at end of treatment with left LE elevated. Patient supine. ) Interventions - Exercise/Activities/Manual Therapy Exercises/Activities: Passive left knee flexion and extension. QS, hamstring stretch, HS. Added 2 1/2# to SLR 2s/15reps, 2 1/2# for SLR/VMO 2s/10reps. SAQ increased to 4# and left hip flexion with 4#. Green theraband for resisted left ankle df and ham curl. Yellow theraband for hip add and hip abd. Isometric hip add and ankle inversion, both with ball. In sitting, LAQ with 3#, passive flexion, AP and heel slides. Isometric knee flexion and extension. Green theraband ham curl. Stationary bike 2mins increasing speed, then 2 sets of 1 mins with resistance set at 40deg/sec. Leg press 60# 15reps, 75# 15reps, and 105 15reps. Ended with additional stretching including prone knee flexion stretch. Total minutes of Exercise: 44mins Manual Therapy: n/a HOME EXERCISE PROGRAM: pt given written HEP including: hamstring stretch, knee ext prop, QS, HS, prone ham set, LAQ. Sitting heel slides. - Objective Findings Observations,measurements,etc.: Pateint continue to ambulate with cane and decreased extension of left knee. - Charges Timed Code Treatment Minutes: 44mins Total Treatment Time: 63mins Procedures billed for this date of service:: EX3, CP Assessment: Patient progressing with ROM and strengthening of the left knee. Patient Education: Body/Joint mechanics, Home Exercise Program, Activity Modification Patient demonstrates compliance with HEP?: Yes Short Term Goals Goal #1: pt independent with intial HEP Goal to be met by: 03/07/19 Progress towards Goal:: Progressing Goal #2: ROM L knee flex 98 ext -8 Goal to be met by: 03/07/19 Progress towards Goal:: Progressing Goal #3: Decrease pain L knee < 8/10 Goal to be met by: 03/07/19 Progress towards Goal:: Progressing Goal #4: Improve strength LLE 4- to 4/5 Goal to be met by: 03/07/19 Longterm Goals Goal #1: Improve ROM L knee flex 110 ext 0 Goal to be met by: 03/28/19 Goal #2: pt amb with/without AD with improved heel strike/toe off Goal to be met by: 03/28/19 Progress towards goal: Progressing Goal #3: decrease pain < 5/10 Goal to be met by: 03/28/19 Goal #4: pt report able to perform normal daily activities with less pain Goal to be met by: 03/28/19 Plan Dates of Longterm Goals: 03/28/19 Expiration date of current Insurance Approval:: 03/28/19 PLAN: Progress ROM and strengthening of the left LE to improve functional gait and activity level.
--- NOTE | 2019-02-28 16:19 | RS.OPPTDN ---
Subjective Date of Note: 02/28/19 Visit #: 4 Number of visits approved by Insurance: na Date of Evaluation: 02/20/19 Payer Source: Workman's Comp Treatment Diagnosis: pain L knee, aftercare following total knee joint, joint stiffness Current Subjective/complaints:: Pt reports he has better ROM. *Precautions: n/a Pain Assessment - Pain Description Pain Location: left knee Current Pain Intensity: moderate Interventions - Exercise/Activities/Manual Therapy Exercises/Activities: Passive left knee flexion and extension. QS, ham sets, hamstring stretch, assisted knee flexion. Increased to 3# to SLR 2s/10reps, hip abd 3#, 2s/10reps. SAQ increased to 5# and left hip flexion. Green theraband for resisted left ankle df and ham curl. Yellow theraband for hip add and hip abd. Isometric hip add and ankle inversion, both with ball. In sitting, LAQ with 4#, passive flexion, AP and heel slides, green theraband resisted ham curl. Isometric knee flexion and extension. Leg press 90# 2s/20reps. Standing forward lunge and toe-off with hip in extension. Total minutes of Exercise: EX 54mins Manual Therapy: n/a HOME EXERCISE PROGRAM: pt given written HEP including: hamstring stretch, knee ext prop, QS, HS, prone ham set, LAQ. Sitting heel slides. - Objective Findings Observations,measurements,etc.: Active left knee flexion to 98 degrees, and passive to 108 degrees. Active extension to -3 degrees. - Charges Timed Code Treatment Minutes: 54mins Total Treatment Time: 57mins Procedures billed for this date of service:: EX4 Assessment: Pt progressing with ROM and strengthening. He is motivated to progress and is attentive to all instruction. Patient Education: Home Exercise Program Patient demonstrates compliance with HEP?: Yes Short Term Goals Goal #1: pt independent with intial HEP Goal to be met by: 03/07/19 Progress towards Goal:: Progressing Goal #2: ROM L knee flex 98 ext -8 Goal to be met by: 03/07/19 Progress towards Goal:: Met Comments:: Flexion 98, ext -3 Goal #3: Decrease pain L knee < 8/10 Goal to be met by: 03/07/19 Progress towards Goal:: Progressing Goal #4: Improve strength LLE 4- to 4/5 Goal to be met by: 03/07/19 Environmental Inspector Goals Goal #1: Improve ROM L knee flex 110 ext 0 Goal to be met by: 03/28/19 Goal #2: pt amb with/without AD with improved heel strike/toe off Goal to be met by: 03/28/19 Progress towards goal: Progressing Goal #3: decrease pain < 5/10 Goal to be met by: 03/28/19 Goal #4: pt report able to perform normal daily activities with less pain Goal to be met by: 03/28/19 Plan Dates of Environmental Inspector Goals: 03/28/19 Expiration date of current Insurance Approval:: 03/28/19 PLAN: Progress with ROM and strengthening to increase patients functional activity level.
== END 2019-03-01 23:59 ==
PROVIDERS: ATTEND Orthopaedic Surgery
DX: Z47.1 Aftercare following joint replacement surgery (principal); Z96.652 Presence of left artificial knee joint; M25.562 Pain in left knee; M25.662 Stiffness of left knee, not elsewhere classified; R26.9 Unspecified abnormalities of gait and mobility